=== PATIENT | male | born 1960 | race Caucasian/White ===

== ENCOUNTER → 2020-05-31 | Outpatient (CLI) | payer MEDICARE, MEDICAID ==
[~2020-05-31] MED LIST: APIX5TAB PO; GABA-532 PO; INSU3INS6 SUBCUT; METF-416 PO
== END | disposition home or self-care (01) ==
LOC: LAB 11:51
PROVIDERS: ATTEND Specialist
DX: R05 Cough (principal); Z20.822 Contact with and (suspected) exposure to COVID-19
CPT/HCPCS: 87426